=== PATIENT | female | born 1980 ===

== ENCOUNTER 2017-12-05 06:56 | Inpatient (IN) | payer BC ==
[2017-12-05] VITALS (40 sets, daily range): BP systolic 102–153; BP diastolic 51–103; PULSE 60–139; TEMP 97.5–98.6
[~2017-12-05] VITALS: Ht 177.8 cm; Wt 119.1 kg
[~2017-12-05 06:56] MED LIST: ALLEGRA ALLERGY60 MG PO; ASPIRIN 81M81 MG/TA2 PO; CETIRIZINE; PRENATAL1 TA1 PO
[2017-12-05 08:20] LABS: BASO % 0.4 % (0.0-2.0); EOS # 0.1 (0.0-0.7); EOS % 1.4 % (0-4.0); GRAN # 5.7 (1.4-6.5); GRAN % 71.1 % (42.2-75.2); HEMATOCRIT 37.7 % (37.0-47.0); HEMOGLOBIN 12.5 g/dl (12.5-16.0); LYMPH # 1.5 (1.2-3.4); LYMPH % 18.7 % (20.0-51.0); MEAN CELL VOLUME 88 fl (80.0-100.0); MEAN CORPUSCULAR HEMOGLOBIN 29 pg (27.0-31.0); MEAN CORPUSCULAR HGB CONC 33 g/dl (33.0-37.0); MEAN PLATELET VOLUME 10.8 fl (7.4-10.4); MONO # 0.6 (0.1-0.6); MONO % 7.9 % (1.7-9.3); PLATELET COUNT 299 K/mm3 (130-400); RED BLOOD COUNT 4.28 M/mm3 (4.10-5.30); REDCELL DISTRIBUTION WIDTH-CV 14.3 % (11.5-14.5)
[2017-12-06 00:15] VITALS: BP 108/45; PULSE 95; TEMP 98
[2017-12-06 07:00] VITALS: BP 98/48; PULSE 76; TEMP 98.1
[2017-12-06] MEDS ORDERED: IBU800 M1 PO (08:47)
[2017-12-06 09:36] LABS: ALBUMIN 3.1 gm/dL (3.5-5.0); BILIRUBIN,TOTAL 0.3 mg/dL (0.0-1.0); CALCIUM 8.6 mg/dL (8.4-10.2); CREATININE, serum 0.61 mg/dL (0.52-1.25); TOTAL PROTEIN 6.2 gm/dL (6.4-8.2)
[2017-12-06 15:48] VITALS: BP 122/68; PULSE 78; TEMP 97.8
[2017-12-06 20:30] VITALS: BP 119/60; PULSE 84; TEMP 97.9
[2017-12-07 08:10] VITALS: BP 119/61; PULSE 75; TEMP 98
== END 2017-12-07 12:15 | disposition home or self-care (01) | DRG 775 ==
LOC: LDR 06:56 → OB 17:15 → EDSTATUS 12-08 07:37 → LDR 12-08 07:43 → LDRO 12-08 14:20
PROVIDERS: Student in an Organized Health Care Education/Training Program
PROC: 10E0XZZ Delivery of Products of Conception, External Approach (ICD-10-PCS; principal; 2017-12-05)
PROC: 0KQM0ZZ Repair Perineum Muscle, Open Approach (ICD-10-PCS; 2017-12-05)
PROC: 3E033VJ Introduction of Other Hormone into Peripheral Vein, Percutaneous Approach (ICD-10-PCS; 2017-12-05)
DX: O26.62 Liver and biliary tract disorders in childbirth (principal); K83.1 Obstruction of bile duct; O69.81X0 Labor and delivery complicated by cord around neck, without compression, not applicable or unspecified; O70.1 Second degree perineal laceration during delivery; Z37.0 Single live birth; Z3A.39 39 weeks gestation of pregnancy
CPT/HCPCS: J2590; J2795; J7120